=== PATIENT | male | born 1985 | race Caucasian/White ===

== ENCOUNTER → 2017-07-09 | Outpatient (CLI) | payer BC ==
[~2017-07-09] MED LIST: WRF1T PO; WRF5T PO
[2017-07-09 10:27] LABS: SEMEN VOLUME 1.2 ML (1.5-5.0)
== END ==
LOC: LAB 08:29
PROVIDERS: ATTEND Obstetrics & Gynecology
DX: N46.9 Male infertility, unspecified (principal)
CPT/HCPCS: 89320

== ENCOUNTER 2017-07-30 08:13 | Outpatient (RCR) | payer BC ==
[2017-07-30 09:33] LABS: SEMEN VOLUME 2.5 ML (1.5-5.0)
== END 2017-10-28 | disposition home or self-care (01) ==
LOC: LAB 08:13
PROVIDERS: ATTEND Obstetrics & Gynecology
DX: N46.11 Organic oligospermia (principal)
CPT/HCPCS: 89320

== ENCOUNTER 2017-11-05 13:08 | Outpatient (RCR) | payer BC ==
[2017-11-05 13:49] LABS: SEMEN VOLUME 1.9 ML (1.5-5.0)
== END 2017-11-16 | disposition home or self-care (01) ==
LOC: LAB 13:08
PROVIDERS: ATTEND Obstetrics & Gynecology
DX: N46.11 Organic oligospermia (principal)
CPT/HCPCS: 89320

== ENCOUNTER 2020-06-21 10:47 | Emergency (ER) | payer OTHER, BC ==
[~2020-06-21] VITALS: Ht 182.9 cm; Wt 142.9 kg
[2020-06-21] MEDS ORDERED: LIDOCAINE 1% INJ 20 ML 20 ML VIAL ONE (12:59)
[2020-06-21] MEDS ORDERED: LIDOCAINE 1% INJ 20 ML 20 ML VIAL INJ ONE (13:15)
[2020-06-21] MEDS ORDERED: TETANUS,DIPTH,PERTUSS P/F (BOOSTRIX) 0.5 ML VIAL IM ONE (13:15)
--- NOTE | 2020-06-21 13:25 | ED Upper Extremity ---
General Chief Complaint: Laceration Stated Complaint: R ARM LAC Nursing Triage Note: Pt reports cutting right arm on metal while at work. Nursing Sepsis Screen: No Definite Risk Source: patient Exam Limitations: no limitations History of Present Illness Date Seen by Provider: Jun 21, 2020 Time Seen by Provider: 13:23 Initial Comments Laceration medial right upper arm from a piece of metal at work. This occurred just prior to arrival. Last tetanus is unknown. Onset: just prior to arrival Severity: moderate Pain/Injury Location: right arm Method of Injury: direct blow Modifying Factors: Worse With Movement Allergies and Home Medications Allergies Coded Allergies: No Known Drug Allergies (Unverified , 03/17/11) Home Medications Warfarin Sod 5 Mg Tab, 6 MG PO DAILY, (Reported) Patient Home Medication List Home Medication List Reviewed: Yes Review of Systems Constitutional: see HPI EENTM: see HPI Respiratory: no symptoms reported Cardiovascular: no symptoms reported Genitourinary: no symptoms reported Musculoskeletal: no symptoms reported Skin: no symptoms reported Past Tlnorpb-Xxelyp-Oaqwny Hx Patient Social History Alcohol Use: Denies Use Smoking Status: Never a Smoker Recent Infectious Disease Expo: No Recent Hopitalizations: Yes (DVT Rt Upper Extremity 2010) Immunizations Up To Date Tetanus Booster (TDap): Less than 5yrs Date of Influenza Vaccine: Jan 30, 2012 Past Medical History Surgeries: Yes (inguinal hernia rempair at 18 mo, extraction of wisdom teeth) Respiratory: No Cardiac: No Neurological: No Reproductive Disorders: No Gastrointestinal: No Musculoskeletal: No Endocrine: No Cancer: No Psychosocial: No Blood Disorders: No Physical Exam Vital Signs Vital Signs - First Documented 06/21/20 11:00 Temp 36.0 Pulse 91 Resp 16 B/P (MAP) 143/107 (119) Pulse Ox 99 Capillary Refill : Less Than 3 Seconds Height, Weight, BMI Height: '" Weight: lbs. oz. kg; 42.00 BMI Method: General Appearance: WD/WN, no apparent distress HEENT: PERRL/EOMI, normal ENT inspection Respiratory: no respiratory distress, no accessory muscle use Shoulder: normal inspection, non-tender Neurologic/Psychiatric: alert, normal mood/affect, oriented x 3 Skin: normal color, warm/dry, other (2 cm laceration to the medial aspect of the upper arm just above the elbow. There is no ulnar nerve injury no tingling down the arm. This was anesthetized with 5 mL of 1% lidocaine without epinephrine. Scrubbed and irrigated with chlorhexidine/saline solution and then closed with 1 continuous sutures size 5-0 Prolene.) Progress/Results/Core Measures Results/Orders Vital Signs/I&O 06/21/20 11:00 Temp 36.0 Pulse 91 Resp 16 B/P (MAP) 143/107 (119) Pulse Ox 99 Blood Pressure Mean: 119 Departure Impression Primary Impression: Arm laceration Disposition: HOME, SELF-CARE Condition: Stable Departure-Patient Inst. Decision time for Depature: 13:25 Referrals: HANY BRENNAN MD (PCP/Family) Primary Care Physician Patient Instructions: Laceration Repair With Stitches ED Add. Discharge Instructions: 1. Keep this clean and dry. You can shower letting water run over it and then gently pat it dry. Return to ER for any signs of infection such as redness or swelling. Have the stitches out in about 7 days. All discharge instructions reviewed with patient and/or family. Voiced un derstanding. PABLO JARAMILLO APRN Jun 21, 2020 13:25
[2020-06-21 13:28] VITALS: BP 122/88
== END 2020-06-21 13:38 | disposition home or self-care (01) ==
LOC: EDUNIT# 10:47 → ER 10:49
DX: S41.111A Laceration without foreign body of right upper arm, initial encounter (principal); Z79.01 Long term (current) use of anticoagulants; W31.1XXA Contact with metalworking machines, initial encounter
CPT/HCPCS: 12002